=== PATIENT | male | born 1990 | race African-American/Black ===

== ENCOUNTER 2018-11-04 18:43 | Emergency (ER) | payer OTHER ==
[~2018-11-04] VITALS: Ht 172.7 cm; Wt 78.6 kg
[2018-11-04 19:28] LABS: BASO % 0.6 % (0.0-1.0); EOS # 0.1 10^3/uL (0.0-0.50); EOS % 1.5 % (0.0-3.0); HEMATOCRIT 42.7 % (42.0-52.0); LYMPH # 2.6 10^3/uL (1.5-6.5); LYMPH % 38.9 % (24.0-44.0); MEAN CORPUSCULAR HGB CONC 35.1 g/dl (32.0-36.5); MEAN CORPUSCULAR VOLUME 93.8 fl (80.0-96.0); MONO # 0.6 10^3/uL (0.0-0.8); MONO % 9.1 % (0.0-5.0); NEUTROPHILS # 3.4 10^3/uL (1.8-7.7); NEUTROPHILS % 49.6 % (36.0-66.0); PLATELET COUNT, AUTOMATED 212 10^3/uL (150-450); RED BLOOD COUNT 4.55 10^6/uL (4.30-6.10); WHITE BLOOD COUNT 6.7 10^3/uL (4.0-10.0)
[2018-11-04 19:56] LABS: ALBUMIN 4.2 GM/DL (3.2-5.2); ALT/SGPT 41 U/L (12-78); BILIRUBIN,DIRECT 0.2 MG/DL (0.0-0.2); BILIRUBIN,TOTAL 0.5 MG/DL (0.2-1.0); BLOOD UREA NITROGEN 11 MG/DL (7-18); CARBON DIOXIDE LEVEL 30 MEQ/L (21-32); CHLORIDE LEVEL 108 MEQ/L (98-107); CREATININE FOR GFR 0.97 MG/DL (0.70-1.30); GLOMERULAR FILTRATION RATE > 60.0 (>60); GLUCOSE, FASTING 86 MG/DL (70-100); LIPASE 139 U/L (73-393); POTASSIUM SERUM 4.3 MEQ/L (3.5-5.1); SODIUM LEVEL 143 MEQ/L (136-145); TOTAL PROTEIN 8.3 GM/DL (6.4-8.2)
[2018-11-04] MEDS ORDERED: SUCRALFATE 1 GM TAB PO ONE (21:30)
[2018-11-04] MEDS ORDERED: PANTOPRAZOLE 40MG INJ (PROTONIX) (C9113) IV ONE (21:30)
[2018-11-04] MEDS ORDERED: FAMOTIDINE INJ 20MG/2ML VIAL (S0028) IVP ONE (21:30)
[2018-11-04] MEDS ORDERED: GI COCKTAIL 50ML BTL(HYOSCYAMINE/MAALOX/LIDOCAINE VISCOUS)(1:3:1) PO ONE (21:30)
[2018-11-04 22:17] VITALS: BP 137/76
[2018-11-04] MEDS ORDERED: CARA1TAB6 PO (23:41)
[2018-11-04] MEDS ORDERED: OMEP40CA2 PO (23:41)
--- NOTE | 2018-11-06 09:35 | REP ---
SUPINE ABDOMEN: 11/04/2018. Clinical history: Left upper quadrant pain. Findings: Single view shows scattered stool and gas in the colon without dilated loops. No abnormal dilatation of small bowel loops. No abnormal calcifications are identified. Bones intact. Impression: 1. Some mild retained stool but no sign of obstruction, mass or abnormal calcification. Electronically Signed by Orestes Quiñones MD 11/06/2018 08:16 P
== END 2018-11-04 23:54 | disposition home or self-care (01) ==
LOC: M ED 18:43
DX: R10.12 Left upper quadrant pain (principal)
CPT/HCPCS: 74018; 80048; 80076; 83690; 85025; 96374; 96375; 99283; C9113

== ENCOUNTER → 2020-04-01 | Outpatient (CLI) | payer SELFPAY ==
[~2020-04-01] MED LIST: CARA1TAB6 PO; OMEP40CA97 PO
== END ==
LOC: M LABSMTC 10:19
PROVIDERS: ATTEND Pediatrics
DX: Z20.822 Contact with and (suspected) exposure to COVID-19 (principal)

== ENCOUNTER → 2020-05-07 | Outpatient (CLI) | payer SELFPAY | LOC: M LABSMTC 10:23 | PROVIDERS: ATTEND Pediatrics | DX: Z20.822 Contact with and (suspected) exposure to COVID-19 (principal) ==

== ENCOUNTER → 2020-05-14 | Outpatient (CLI) | payer SELFPAY | LOC: M LABSMTC 10:16 | PROVIDERS: ATTEND Pediatrics | DX: Z11.52 Encounter for screening for COVID-19 (principal) ==

== ENCOUNTER → 2020-09-13 | Outpatient (CLI) | payer SELFPAY ==
[~2020-09-13] MED LIST changes: +OMEP40CA4 PO; -OMEP40CA97 PO
== END ==
LOC: M LABSMTC 12:14
PROVIDERS: ATTEND Pediatrics
DX: Z20.822 Contact with and (suspected) exposure to COVID-19 (principal)